=== PATIENT | female | born 1985 | race American Indian/Alaskan Native ===

== ENCOUNTER 2023-01-04 09:22 | Emergency (ER) | payer BC, OTHER ==
[~2023-01-04] VITALS: Ht 154.9 cm; Wt 70.5 kg
[2023-01-04 10:58] LABS: BASOPHILS % (AUTO) 0.3 % (0-1); EOSINOPHILS % (AUTO) 0 % (0-6); HEMATOCRIT 42.7 % (35.0-45.0); HEMOGLOBIN 14.5 g/dl (12.0-16.0); LYMPHOCYTES # (AUTO) 1.1 X10'3 (1.1-4.8); LYMPHOCYTES % (AUTO) 10.4 % (21-51); MEAN CORPUSCULAR HEMOGLOBIN 31.1 PG (27.0-31.0); MEAN CORPUSCULAR VOLUME 91.5 FL (78-98); MEAN PLATELET VOLUME 9.8 FL (7.4-10.4); MONOCYTES # (AUTO) 0.6 X10'3 (0-0.9); MONOCYTES % (AUTO) 5.8 % (2-12); NEUTROPHILS # (AUTO) 8.9 X10'3 (1.8-7.7); NEUTROPHILS % (AUTO) 83.5 % (42-75); PLATELET COUNT 466 X10'3 (140-440); RED BLOOD COUNT 4.66 X10'6 (4.20-5.60); RED CELL DISTRIBUTION WIDTH 13.5 % (11.5-14.5); WHITE BLOOD COUNT 10.7 X10'3 (4.5-11.0)
[2023-01-04 11:16] LABS: LIPASE 63 U/L (73-393)
[2023-01-04 11:23] LABS: ALANINE AMINOTRANSFERASE 17 U/L (12-78); ALBUMIN 4.5 G/DL (3.4-5.0); ALBUMIN/GLOBULIN RATIO 1.3 (1.1-1.5); ALKALINE PHOSPHATASE 71 IU/L (46-116); ANION GAP 13 (8-16); ASPARTATE AMINO TRANSFERASE 13 U/L (10-37); BLOOD UREA NITROGEN 17 MG/DL (7-18); BUN/CREATININE RATIO 15.6 (10.0-20.0); CALCIUM 9.8 MG/DL (8.5-10.1); CHLORIDE 100 MMOL/L (99-107); CREATININE 1.09 MG/DL (0.40-0.90); GLUCOSE 124 MG/DL (70-104); POTASSIUM 3.2 MMOL/L (3.5-5.1); SODIUM 139 MMOL/L (135-145); TOTAL CARBON DIOXIDE 25.9 MMOL/L (24-32); TOTAL PROTEIN 8.1 G/DL (6.4-8.2); eCRCL 52 ML/MIN; eGFR 56 ML/MIN
--- NOTE | 2023-01-04 14:40 | NUR ---
PT C/O FEELING LIKE SHE HAS PRESSURE IN HER CHEST. EKG BEING DONE AT THIS TIME.
--- NOTE | 2023-01-04 14:42 | NUR ---
RN CONFIRMED WITH PT ONLY ALLERGY IS TO PCN AND SULFA.
[2023-01-04] MEDS ORDERED: morphine 4 MG/ML inj SYRINge IV ONE (14:55)
[2023-01-04] MEDS ORDERED: ringers solution, lacted 1,000 ML IV ONE ×2 (14:55→16:55)
[2023-01-04] MEDS ORDERED: ondansetron/PF 4mg/2ml inj IV ONE (14:55)
--- NOTE | 2023-01-04 15:04 | NUR ---
EMT STUDENT ATTEMPTING IV AT THIS TIME.
[2023-01-04 15:47] LABS: HCG SERUM QL NEGATIVE
[2023-01-04] MEDS ORDERED: iohexol 300mg/ml 100ml inj. ONE (15:49)
--- NOTE | 2023-01-04 16:12 | NUR ---
PT TAKEN TO CT.
[2023-01-04] MEDS ORDERED: potassium Cl 20 mEq SR tablet PO ONE (16:20)
[2023-01-04] MEDS ORDERED: ONDA4TAB12 PO (16:57)
[2023-01-04] MEDS ORDERED: HYDR-3965 PO (16:57)
[2023-01-04 17:23] VITALS: BP 117/74; PULSE 103; RESP 13; O2SAT 100
[2023-01-04 17:34] LABS: BILIRUBIN,URINE NEGATIVE (Neg); CLARITY,URINE CLOUDY (Clear); COLOR,URINE YELLOW (Yellow); GLUCOSE, URINE NEGATIVE (Neg); KETONES,URINE >=80 mg/dl (Neg); LEUKOCYTE ESTERASE ,URINE NEGATIVE (Neg); NITRITES, URINE NEGATIVE (Neg); OCCULT BLOOD,URINE TRACE-INTACT (Neg); PROTEIN,URINE 30 mg/dl (Neg); UROBILINOGEN,URINE 0.2 E.U/dL (0.2-1.0)
[2023-01-04 17:51] LABS: UA COLLECTION TYPE CLN CATCH MIDSTREAM
[2023-01-04 17:53] VITALS: TEMP 98.1
[2023-01-04 18:05] LABS: BACTERIA,URINE 1+ /HPF (Neg); MUCUS STRANDS MODERATE /LPF (Neg); RBC,URINE 0-2 /HPF (0-2); SQUAMOUS EPITHELIAL CELL,UR MODERATE /LPF (FEW); WBC,URINE 0-4 /HPF (0-4)
== END 2023-01-04 18:28 | disposition home or self-care (01) ==
LOC: ER 09:23
DX: K52.9 Noninfective gastroenteritis and colitis, unspecified (principal); R11.2 Nausea with vomiting, unspecified; R10.13 Epigastric pain; Z79.899 Other long term (current) drug therapy
CPT/HCPCS: 36415; 74177; 80053; 81001; 83690; 84703; 85025; 93005; 96361; 96374; 96375; 99285; J2270; J2405; J3490; J7120; Q9967